=== PATIENT | female | born 1965 ===

== ENCOUNTER 2018-03-27 10:31 | Outpatient (CLI) | payer OTHER ==
[~2018-03-27 10:31] MED LIST: AMBIEN10 MG PO; CALTRATE 600600 MG; CARAFATE1 G; CIPRO500 MG PO; FIORICET 50-321 EACH PO; LEVSIN0.125 MG; MULTI VITAMINS W1 MG PO; NAPR500T14 PO; SIMVASTATIN5 MG; TESSALON200 MG PO; ZYRTEC10 MG PO; [UNRECOGNIZED DRUG - OTHER]
== END 2018-03-27 15:00 | disposition home or self-care (01) ==
LOC: LAB 10:31
DX: Z11.3 Encounter for screening for infections with a predominantly sexual mode of transmission (principal)

== ENCOUNTER 2018-04-23 02:17 | Inpatient (IN) | payer OTHER ==
[~2018-04-23] VITALS: Ht 154.9 cm; Wt 70.8 kg
== END 2018-04-25 11:14 | disposition home or self-care (01) | DRG 202 ==
LOC: ER 02:17 → SURG 12:30
PROC: B246ZZZ Ultrasonography of Right and Left Heart (ICD-10-PCS; principal; 2018-04-23)
PROC: 4A12X4Z Monitoring of Cardiac Electrical Activity, External Approach (ICD-10-PCS; 2018-04-23)
PROC: 4A033R1 Measurement of Arterial Saturation, Peripheral, Percutaneous Approach (ICD-10-PCS; 2018-04-23)
DX: J20.9 Acute bronchitis, unspecified (principal); J45.41 Moderate persistent asthma with (acute) exacerbation; R00.0 Tachycardia, unspecified; R07.89 Other chest pain; Z79.52 Long term (current) use of systemic steroids

== ENCOUNTER 2018-09-26 08:06 | Outpatient (CLI) | payer OTHER | END 2018-09-26 08:14 | disposition home or self-care (01) | LOC: LAB 08:06 | DX: E55.9 Vitamin D deficiency, unspecified (principal); E78.2 Mixed hyperlipidemia; E03.8 Other specified hypothyroidism; Z12.11 Encounter for screening for malignant neoplasm of colon; Z13.1 Encounter for screening for diabetes mellitus ==

== ENCOUNTER 2018-09-26 09:08 | Outpatient (CLI) | payer OTHER | END 2018-09-26 15:03 | disposition home or self-care (01) | LOC: MAMO-SONO 09:08 | DX: M54.89 Other dorsalgia (principal); M62.838 Other muscle spasm; Z12.31 Encounter for screening mammogram for malignant neoplasm of breast ==

== ENCOUNTER → 2018-10-03 06:46 | Outpatient (CLI) | payer OTHER | END | disposition home or self-care (01) | LOC: LAB 06:46 | DX: D64.89 Other specified anemias (principal); N39.0 Urinary tract infection, site not specified; E03.8 Other specified hypothyroidism ==

== ENCOUNTER 2018-10-03 08:13 | Outpatient (CLI) | payer OTHER | END 2018-10-03 08:23 | disposition home or self-care (01) | LOC: SONOGRAMA 08:13 | DX: N60.19 Diffuse cystic mastopathy of unspecified breast (principal); R92.2 Inconclusive mammogram ==

== ENCOUNTER 2018-10-14 08:09 | Outpatient (CLI) | payer OTHER | END 2018-10-14 09:02 | disposition home or self-care (01) | LOC: LAB 08:09 | DX: N95.0 Postmenopausal bleeding (principal) ==

== ENCOUNTER 2018-11-17 09:12 | Outpatient (CLI) | payer OTHER | END 2018-11-17 09:24 | disposition home or self-care (01) | LOC: SONOGRAMA 09:12 | DX: N60.11 Diffuse cystic mastopathy of right breast (principal); N60.12 Diffuse cystic mastopathy of left breast ==

== ENCOUNTER → 2018-12-16 | Emergency (ER) | payer OTHER ==
[~2018-12-16] VITALS: Ht 154.9 cm; Wt 74.8 kg
[~2018-12-16] MED LIST changes: +ALBUTEROL2.5 MG/3 M IH; +ALLEGRA-D 12 H1 EACH PO; +CEFUROXIME500 MG PO; +ZYNCOF 20-400120 ML PO
== END | disposition home or self-care (01) ==
LOC: ER 01:09
DX: J06.9 Acute upper respiratory infection, unspecified (principal)

== ENCOUNTER → 2018-12-19 12:13 | Outpatient (CLI) | payer OTHER | END | disposition home or self-care (01) | LOC: LAB 12:13 | DX: R50.9 Fever, unspecified (principal) ==

== ENCOUNTER → 2019-06-28 15:37 | Outpatient (CLI) | payer OTHER | END | disposition home or self-care (01) | LOC: LAB 15:37 | DX: J11.1 Influenza due to unidentified influenza virus with other respiratory manifestations (principal) ==

== ENCOUNTER 2019-12-16 21:50 | Emergency (ER) | payer OTHER ==
[~2019-12-16] VITALS: Ht 154.9 cm; Wt 73.5 kg
== END 2019-12-16 23:41 | disposition home or self-care (01) ==
LOC: ER 21:50
DX: S40.011A Contusion of right shoulder, initial encounter (principal); M62.838 Other muscle spasm; W18.39XA Other fall on same level, initial encounter; Y93.89 Activity, other specified; Y92.69 Other specified industrial and construction area as the place of occurrence of the external cause; Y99.8 Other external cause status

== ENCOUNTER 2020-02-27 11:40 | Outpatient (CLI) | payer OTHER | END 2020-02-27 11:42 | disposition home or self-care (01) | LOC: RAD 11:40 | PROVIDERS: ATTEND General Practice | DX: R05 Cough (principal); R06.2 Wheezing; R50.9 Fever, unspecified ==

== ENCOUNTER 2020-04-14 08:07 | Outpatient (CLI) | payer OTHER | END 2020-04-14 08:10 | disposition home or self-care (01) | LOC: RAD 08:07 | PROVIDERS: ATTEND Internal Medicine Pulmonary Disease | DX: J44.1 Chronic obstructive pulmonary disease with (acute) exacerbation (principal) ==

== ENCOUNTER 2020-05-10 09:39 | Outpatient (CLI) | payer OTHER | END 2020-05-10 09:43 | disposition home or self-care (01) | LOC: LAB 09:39 | PROVIDERS: ATTEND Urology | DX: N30.00 Acute cystitis without hematuria (principal) ==

== ENCOUNTER → 2020-05-24 | Emergency (ER) | payer OTHER ==
[~2020-05-24] VITALS: Ht 154.9 cm; Wt 74.8 kg
[~2020-05-24] MED LIST changes: +ACETAMINOPHEN650 M2 PO; +VITAMIN C WIT1000 MG PO
== END | disposition left against medical advice (07) ==
LOC: ER 02:22
DX: B34.9 Viral infection, unspecified (principal); T88.1XXA Other complications following immunization, not elsewhere classified, initial encounter

== ENCOUNTER 2020-10-10 08:48 | Outpatient (CLI) | payer OTHER | END 2020-10-10 08:55 | disposition home or self-care (01) | LOC: MAMO-SONO 08:48 | PROVIDERS: ATTEND Surgery | DX: N60.11 Diffuse cystic mastopathy of right breast (principal); N60.12 Diffuse cystic mastopathy of left breast ==

== ENCOUNTER 2021-04-15 08:00 | Outpatient (CLI) | payer OTHER | END 2021-04-15 08:30 | disposition home or self-care (01) | LOC: PPH VACUNA 08:00 | PROVIDERS: ATTEND Emergency Medicine Pediatric Emergency Medicine | DX: Z23 Encounter for immunization (principal) ==

== ENCOUNTER 2021-11-17 14:51 | Outpatient (CLI) | payer OTHER | END 2021-11-17 15:01 | disposition home or self-care (01) | LOC: PPH VACUNA 14:51 | PROVIDERS: ATTEND Emergency Medicine Pediatric Emergency Medicine | DX: Z23 Encounter for immunization (principal) ==

== ENCOUNTER 2021-12-18 08:28 | Outpatient (CLI) | payer OTHER | END 2021-12-18 08:29 | disposition home or self-care (01) | LOC: NUCLEAR 08:28 | PROVIDERS: ATTEND General Practice | DX: I70.219 Atherosclerosis of native arteries of extremities with intermittent claudication, unspecified extremity (principal); Z88.8 Allergy status to other drugs, medicaments and biological substances ==

== ENCOUNTER → 2022-01-15 | Outpatient (CLI) | payer OTHER | END | disposition home or self-care (01) | LOC: NUCLEAR 10:54 | PROVIDERS: ATTEND General Practice | DX: I70.219 Atherosclerosis of native arteries of extremities with intermittent claudication, unspecified extremity (principal) ==

== ENCOUNTER 2022-03-30 16:00 | Outpatient (CLI) | payer OTHER | END 2022-03-30 16:05 | disposition home or self-care (01) | LOC: PPH VACUNA 16:00 | PROVIDERS: ATTEND Emergency Medicine Pediatric Emergency Medicine | DX: Z23 Encounter for immunization (principal) ==

== ENCOUNTER 2022-05-05 13:52 | Outpatient (CLI) | payer OTHER | END 2022-05-05 13:58 | disposition home or self-care (01) | LOC: RAD 13:52 | PROVIDERS: ATTEND General Practice | DX: R05.9 Cough, unspecified (principal) ==

== ENCOUNTER 2022-06-24 07:56 | Outpatient (CLI) | payer OTHER | END 2022-06-24 07:58 | disposition home or self-care (01) | LOC: LAB 07:56 | PROVIDERS: ATTEND Internal Medicine Endocrinology, Diabetes & Metabolism | DX: L65.9 Nonscarring hair loss, unspecified (principal); R63.5 Abnormal weight gain ==

== ENCOUNTER 2022-07-01 05:38 | Day surgery (SDC) | payer OTHER | END 2022-07-01 11:50 | disposition home or self-care (01) | LOC: AMB-ENDOS 05:38 | PROVIDERS: ATTEND Surgery | DX: K57.30 Diverticulosis of large intestine without perforation or abscess without bleeding (principal); Z20.822 Contact with and (suspected) exposure to COVID-19; R14.0 Abdominal distension (gaseous); R93.5 Abnormal findings on diagnostic imaging of other abdominal regions, including retroperitoneum ==

== ENCOUNTER 2023-03-13 23:32 | Emergency (ER) | payer OTHER ==
[~2023-03-13] VITALS: Ht 162.6 cm; Wt 72.6 kg
[2023-03-14 01:26] LABS: PH,URINE 7.5 (5.0-8.0); URINE APPEARANCE Clear; URINE BILIRRUBIN Negative (NEGATIVE); URINE BLOOD Moderate; URINE COLOR Yellow; URINE GLUCOSE Negative (NEGATIVE); URINE LEUKOCYTE Small; URINE NITRATE Negative; URINE PROTEIN Negative (NEGATIVE); URINE UROBILINOGEN 0.2 E.U./dl
[2023-03-14 01:27] LABS: HEMATOCRIT 41.1 % (36.0-45.00); MEAN CELL VOLUME 86.8 fL (80.00-100.00); MEAN CORPUSCULAR HEMOGLOBIN 29.5 pg (27.00-32.0); PLATELET COUNT 286 K/uL (150-450); RED BLOOD COUNT 4.73 M/uL (4.00-6.00); RED CELL DISTRIBUTION WIDTH 12.8 % (11.5-14.5)
[2023-03-14 01:30] LABS: URINE BACTERIA 17.6 uL (0.0-1933); URINE EPITHELIAL CELLS 2.3 uL (0.0-38.8); URINE RBC 86.2 uL (0.0-20.8); URINE WBC 24.6 uL (0.0-23.2)
[2023-03-14 01:47] LABS: ALBUMIN 4.2 gm/dL (3.4-5.0); BILIRUBIN TOTAL 0.3 mg/dL (0.3-1.2); CALCIUM 9.4 mg/dL (8.5-10.1); CREATININE SERUM 0.74 mg/dL (0.55-1.02); GFR 80.61; GLOBULINA 3.9 G/DL (2.4-3.5); POTASSIUM 3.42 mEq/L (3.5-5.1); TOTAL PROTEIN 8.1 gm/dL (6.4-8.2)
[2023-03-14] MEDS ORDERED: ONDANSETRON ODT4 MG PO (04:27)
[2023-03-14] MEDS ORDERED: DOLOGESIC-DF 51 EACH PO (04:27)
== END 2023-03-14 04:31 | disposition home or self-care (01) ==
LOC: ER 23:32
PROVIDERS: General Practice
DX: R06.02 Shortness of breath (principal); R05.9 Cough, unspecified; Z20.822 Contact with and (suspected) exposure to COVID-19; Z88.8 Allergy status to other drugs, medicaments and biological substances

== ENCOUNTER 2023-03-30 13:12 | Outpatient (CLI) | payer OTHER ==
[~2023-03-30 13:12] MED LIST changes: +DOLOGESIC-DF 51 EACH PO; +ONDANSETRON ODT4 MG PO
== END 2023-03-30 13:34 | disposition home or self-care (01) ==
LOC: MAMO-SONO 13:12
PROVIDERS: ATTEND Surgery
DX: Z12.31 Encounter for screening mammogram for malignant neoplasm of breast (principal)

== ENCOUNTER 2023-07-26 12:04 | Outpatient (CLI) | payer OTHER ==
[2023-07-26 13:00] LABS: PH,URINE 6.5 (5.0-8.0); URINE APPEARANCE Clear; URINE BILIRRUBIN Negative (NEGATIVE); URINE BLOOD Moderate; URINE COLOR Yellow; URINE GLUCOSE Negative (NEGATIVE); URINE LEUKOCYTE Moderate; URINE NITRATE Negative; URINE PROTEIN Negative (NEGATIVE); URINE UROBILINOGEN 0.2 E.U./dl
[2023-07-26 13:02] LABS: URINE BACTERIA 74.3 uL (0.0-1933); URINE EPITHELIAL CELLS 17.9 uL (0.0-38.8); URINE RBC 182.5 uL (0.0-20.8); URINE WBC 85.3 uL (0.0-23.2)
== END 2023-07-26 13:48 | disposition home or self-care (01) ==
LOC: LAB 12:04
PROVIDERS: ATTEND Urology
DX: N30.00 Acute cystitis without hematuria (principal)

== ENCOUNTER 2023-08-09 15:00 | Outpatient (CLI) | payer OTHER | END 2023-08-09 15:10 | disposition home or self-care (01) | LOC: PPH VACUNA 15:00 | PROVIDERS: ATTEND Emergency Medicine Pediatric Emergency Medicine | DX: Z23 Encounter for immunization (principal) ==

== ENCOUNTER 2023-09-13 15:30 | Outpatient (CLI) | payer OTHER ==
[2023-09-13 16:19] LABS: ALBUMIN 3.8 gm/dL (3.4-5.0); BILIRUBIN TOTAL 0.35 mg/dL (0.3-1.2); CALCIUM 9.5 mg/dL (8.5-10.1); CREATININE SERUM 0.58 mg/dL (0.55-1.02); GFR 106.4; TOTAL PROTEIN 6.8 gm/dL (6.4-8.2)
== END 2023-09-13 15:42 | disposition home or self-care (01) ==
LOC: LAB 15:30
PROVIDERS: ATTEND Student in an Organized Health Care Education/Training Program
DX: N39.0 Urinary tract infection, site not specified (principal)

== ENCOUNTER 2024-03-26 03:30 | Outpatient (CLI) | payer OTHER | END 2024-03-26 04:00 | disposition home or self-care (01) | LOC: PPH VACUNA 03:30 | PROVIDERS: ATTEND Emergency Medicine Pediatric Emergency Medicine | DX: Z23 Encounter for immunization (principal) ==